=== PATIENT | female | born 1960 | race Hispanic/Latino ===

== ENCOUNTER 2017-09-02 10:02 | Day surgery (SDC) | payer OTHER ==
[2017-09-01 11:32] VITALS: BMI 23.2
[2017-09-02 10:51] VITALS: RESP 18
[2017-09-02] MEDS ORDERED: Lactated Ringer's 1,000 ML IV ONE (11:10)
[2017-09-02] MEDS ORDERED: methylPREDNISolone Depo 80 mg/ml Inj ONE (11:14)
[2017-09-02] MEDS ORDERED: Iohexol 300 10 ML ONE (11:15)
[2017-09-02] MEDS ORDERED: Bupivacaine HCl 0.25% PF (30 ml) Inj ONE (11:15)
[2017-09-02] MEDS ORDERED: Midazolam 2 MG/2 ML VIAL ONE (11:32)
[2017-09-02] MEDS ORDERED: Lidocaine 1% Inj (20ml) IJ ONE (11:59)
[2017-09-02] MEDS ORDERED: HYDROmorphone 0.5 mg/0.5 ml ISec IVP PRN (12:44)
[2017-09-02] MEDS ORDERED: Lactated Ringer's 1,000 ML IV SCH (12:45)
[2017-09-02] MEDS ORDERED: Oxycodone/Acetaminophen 5/325 mg Tab PO PRN (12:53)
[2017-09-02] MEDS ORDERED: DiphenhydrAMINE 50 mg/ml Inj ONE (13:32)
[2017-09-02] MEDS ORDERED: DiphenhydrAMINE 50 mg/ml Inj IM STA (13:34)
[2017-09-02 15:14] VITALS: TEMP 98
[2017-09-02 15:19] VITALS: O2SAT 96
[2017-09-02 16:15] VITALS: BP 114/56; PULSE 79
--- NOTE | 2017-09-03 01:53 | OP ---
PROCEDURE DATE: 09/02/2017 PREOPERATIVE DIAGNOSES: Cervical facet syndrome and right occipital neuralgia. POSTOPERATIVE DIAGNOSES: Cervical facet syndrome and right occipital neuralgia. PROCEDURE: Right C2, C3 and C4 medial branch nerve block and right occipital nerve pulsed radiofrequency. ANESTHESIOLOGIST: Mariela Zimmerman MD SURGEON: Christie Smith MD ANESTHESIA TYPE: Monitored anesthesia care. COMPLICATIONS: None. SPECIMEN: None. DESCRIPTION OF PROCEDURE: As follows. After the discussion of the procedure with the patient including its risks, benefits, alternatives, outcome data, possibility of no effect or increased pain, the patient consented to the procedure. She denies any recent infection, bleeding tendencies, or being on anticoagulants. A decision was made to proceed to the OR. The patient was placed on the fluoroscopy table in a prone position using the head positioner. The neck was prepped and draped in the usual sterile fashion, and a sterile technique was adhered during the entire procedure. The C2, C3 and C4 vertebral levels were first identified in the anteroposterior view. The target of the medial branch nerves located at the upper facet border on the lateral aspect of the vertebral body at the three corresponding levels. The skin overlying the three above target areas were then infiltrated with 1% lidocaine using a 25-gauge needle. Subsequently, a 25-gauge 3.5 inch spinal needle was incrementally advanced under fluoroscopic guidance until the tip of needle made bony contact with all three target areas. The needle was advanced slightly anteriorly and anteriorly. After satisfactory positioning of all three needles, approximately 0.5 mL of Isovue contrast was injected to rule out intravenous uptake. After doing so, approximately 2 mL of 0.25% Marcaine and Depo-Medrol mixture was injected. The needle was then removed. Then, the right occipital nerve was observed under ultrasound guidance medial to the occipital artery. A 3.5 inch with 50 mm active tip Stimuplex needle was then inserted under ultrasound guidance until the tip of needle is in contact with the occipital nerve. At this point, sensory testing was carried out to 1 millivolt, and this is corresponding right occipital nerve pain going out the top of the head. This is the same pain that the patient usually has. At this point, approximately 2 mL of 1% lidocaine was injected to anesthetize the nerve. Pulsed radiofrequency was then carried out at 8 degrees Celsius for approximately four minutes. At the end of the procedure, the nerve was treated with 4 mL of 0.25% Marcaine and Depo-Medrol mixture. The needle was then removed. The patient's head and neck was then cleaned and dried. Bandages were applied. The patient was then transferred to recovery area in good condition without any signs of DESIGN DIRECTOR toxicity or any neurological deficit. She will be following up in our office in approximately two to four weeks. En-Pineda Smith MD
--- NOTE | 2017-09-03 10:11 | RAD ---
Date of service: 09/02/2017 PROCEDURE: Intraoperative Fluoroscopy. HISTORY: PAIN MANAGEMENT FINDINGS: Fluoroscopic assistance was provided. Fluoroscopy time = 28.1 seconds. Radiation dose = 5.89 mGy -cm. Please refer to the operative report from [facility].
== END 2017-09-02 16:40 | disposition home or self-care (01) ==
LOC: H.OPSURG 10:02
PROVIDERS: ATTEND Anesthesiology
DX: M54.81 Occipital neuralgia (principal)
CPT/HCPCS: 64633; 64634; J1040; J1170; J1200; J1885; J2250; J2270; J2405; J3010; J7120; Q9967